=== PATIENT | female | born 1990 | race Caucasian/White ===

== ENCOUNTER 2017-09-26 10:44 | Emergency (ER) | payer OTHER ==
[~2017-09-26] VITALS: Ht 154.9 cm; Wt 78.9 kg
[~2017-09-26 10:44] MED LIST: ALBU-136 IH; PREN-385 PO
[2017-09-26 11:04] VITALS: BP 131/76
--- NOTE | 2017-09-26 11:19 | NUR ---
27 F BIB WITH C/O 10/10 FOREHEAD HEADACHE X 3 DAYS WITH DIZZINESS, BLURRY VISION, PHOTOPHOBIA, AND N/V .HX-ASTHMA.SKIN IS PINK/WARM/DRY; AAOX4 WITH EVEN AND STEADY GAIT; LUNGS CLEAR BL; PT DENIES ANY FEVER, CP, SOB, OR COUGH AT THIS TIME; PATIENT STATES PAIN OF 0/10 AT THIS TIME; PATIENT POSITIONED FOR COMFORT; HOB ELEVATED; BEDRAILS UP X2; BED DOWN. ER MD MADE AWARE OF PT STATUS.
[2017-09-26] MEDS ORDERED: NACL 0.9% 1,000 ML IV ONE (11:40)
[2017-09-26] MEDS ORDERED: diphenhydrAMINE 50 MG/ML VIAL IVP ONE (11:40)
[2017-09-26] MEDS ORDERED: METOCLOPRAMIDE 10 MG/2 ML INJ VIAL IVP ONE (11:40)
[2017-09-26] MEDS ORDERED: KETOROLAC 30 MG/ML VIAL IVP ONE (12:25)
[2017-09-26 13:00] VITALS: BP 128/77
--- NOTE | 2017-09-26 13:00 | NUR ---
Patient discharged with v/s stable. Written and verbal after care instructions given and explained. Patient alert, oriented and verbalized understanding of instructions. Ambulatory with steady gait. All questions addressed prior to discharge. ID band removed. Patient advised to follow up with PMD. Rx of MOTRIN AND ZOFRAN given. Patient educated on indication of medication including possible reaction and side effects. Opportunity to ask questions provided and answered.
== END 2017-09-26 13:00 | disposition home or self-care (01) ==
LOC: MED 10:44
DX: R51 Headache (principal); R11.2 Nausea with vomiting, unspecified; M54.2 Cervicalgia; J45.909 Unspecified asthma, uncomplicated; Z79.899 Other long term (current) drug therapy
CPT/HCPCS: 81002; 81025; 96361; 96374; 96375; 99284; J1200; J1885; J2765; J7030

== ENCOUNTER 2019-07-31 21:21 | Emergency (ER) | payer OTHER ==
[~2019-07-31] VITALS: Ht 154.9 cm; Wt 86.6 kg
[2019-07-31 21:32] VITALS: BP 139/93
[2019-07-31] MEDS: KETOROLAC 30 MG/ML VIAL IM ONE (23:08)
[2019-07-31 23:13] LABS: BASOPHILS % (AUTO) 0.5 % (0.0-2.0); EOSINOPHILS # (AUTO) 0.1 K/uL (0-0.4); EOSINOPHILS % (AUTO) 1.2 % (0.0-4.0); HEMATOCRIT 37.2 % (36-48); LYMPHOCYTES # (AUTO) 3.7 K/uL (2.5-16.5); LYMPHOCYTES % (AUTO) 37.1 % (20.5-51.1); MEAN CORPUSCULAR HEMOGLOBIN 25 pg (27-31); MEAN CORPUSCULAR HGB CONC 32 g/dL (33-37); MEAN CORPUSCULAR VOLUME 76.9 fL (80-94); MONOCYTES # (AUTO) 0.7 K/uL (0.8-1.0); MONOCYTES % (AUTO) 6.7 % (1.7-9.3); NEUTROPHILS # (AUTO) 5.4 K/uL (1.8-7.7); NEUTROPHILS % (AUTO) 54.5 % (42.2-75.2); PLATELET COUNT (AUTO) 252 K/uL (140-450); RED BLOOD CELL COUNT(AUTO) 4.84 MIL/uL (4.20-5.40); RED CELL DISTRIBUTION WIDTH 14.3 % (11.6-13.7); WHITE BLOOD COUNT (AUTO) 9.9 K/uL (4.8-10.8)
[2019-07-31 23:28] LABS: APPEARANCE,URINE CLEAR (CLEAR); BILIRUBIN,URINE NEGATIVE (NEGATIVE); BLOOD, URINE 1+ (NEGATIVE); COLOR,URINE YELLOW (YELLOW); LEUKOCYTE ESTERASE ,URINE NEGATIVE (NEGATIVE); NITRITE, URINE NEGATIVE (NEGATIVE); UGLUCOSE NEGATIVE (NEGATIVE)
[2019-07-31 23:29] LABS: ALBUMIN 3.6 g/dL (3.4-5.0); ANION GAP 12.4 (8-16); CREATININE 0.7 mg/dL (0.6-1.3); POTASSIUM 3.4 mmol/L (3.5-5.1); TOTAL BILIRUBIN 0.6 mg/dL (0.0-1.0)
[2019-07-31 23:38] LABS: RBC,URINE 0-5 /HPF (0-5); WBC,URINE 0-5 /HPF (0-5)
[2019-08-01] MEDS: MORPHINE SULFATE 4 MG/ML SYR IM ONE (01:14)
[2019-08-01] MEDS: DICYCLOMINE HCL LIQUID 20 MG, ALUMINUM HYD/MAG/SIMETHICONE 30 ML, LIDOCAINE VISCOUS 2% ... PO ONE ×3 (01:15)
[2019-08-01 02:05] VITALS: BP 120/83
== END 2019-08-01 02:05 | disposition home or self-care (01) ==
LOC: MED 21:21
DX: R10.11 Right upper quadrant pain (principal); J45.909 Unspecified asthma, uncomplicated; F41.9 Anxiety disorder, unspecified; Z90.49 Acquired absence of other specified parts of digestive tract; Z79.899 Other long term (current) drug therapy
CPT/HCPCS: 36415; 71045; 80053; 81001; 81025; 83690; 85025; 96372; 99284; J1885; J2270

== ENCOUNTER 2019-09-03 19:20 | Emergency (ER) | payer OTHER ==
[~2019-09-03] VITALS: Ht 162.6 cm; Wt 91.6 kg
--- NOTE | 2019-09-03 19:41 | NUR ---
PT AMBULATED TO BED 08.
[2019-09-03 19:47] VITALS: BP 136/81
--- NOTE | 2019-09-03 20:14 | NUR ---
29 Y/O F PRESENTS TO ER C/O RUQ PAIN X1 MONTH. PAIN LEVEL 10/10 SHARP, COMES AND GOES. PT SEEN PCP X 2 WEEKS AGO AND SCHEDULED AN ULTRASOUND THIS MONDAY, BUT PT "CAN'T TAKE THE PAIN" PT HAD X3 VOMIT EPISODES. DENIES NAUSEA AT THIS TIME. DENIES FEVER/CHILLS OR DIARRHEA. NKA. NO MED HX. SURGICAL HX: GALLBLADDER REMOVAL 2009. SAFETY MEASURES IN PLACE. WAITING FOR ERMD TO EVALUATE PT.
--- NOTE | 2019-09-03 20:29 | NUR ---
DR. BUTT AT BEDSIDE EVALUATING PT
[2019-09-03] MEDS ORDERED: KETOROLAC 30 MG/ML VIAL IM ONE (20:30)
[2019-09-03] MEDS ORDERED: HYDROcodone/APAP 5/325 MG 1 TAB TAB PO ONE (20:30)
--- NOTE | 2019-09-03 20:45 | NUR ---
LAB AT BEDSIDE
[2019-09-03 20:53] LABS: BASOPHILS # (AUTO) 0.1 K/uL (0.00-0.22); BASOPHILS % (AUTO) 0.6 % (0.0-2.0); EOSINOPHILS # (AUTO) 0.1 K/uL (0-0.4); EOSINOPHILS % (AUTO) 0.9 % (0.0-4.0); HEMATOCRIT 35.6 % (36-48); HEMOGLOBIN 11.4 g/dL (12.0-16.0); LYMPHOCYTES # (AUTO) 3.5 K/uL (2.5-16.5); LYMPHOCYTES % (AUTO) 29.2 % (20.5-51.1); MEAN CORPUSCULAR HEMOGLOBIN 25 pg (27-31); MEAN CORPUSCULAR HGB CONC 32 g/dL (33-37); MEAN CORPUSCULAR VOLUME 77.8 fL (80-94); MONOCYTES # (AUTO) 0.7 K/uL (0.8-1.0); NEUTROPHILS # (AUTO) 7.6 K/uL (1.8-7.7); NEUTROPHILS % (AUTO) 63.3 % (42.2-75.2); PLATELET COUNT (AUTO) 278 K/uL (140-450); RED BLOOD CELL COUNT(AUTO) 4.57 MIL/uL (4.20-5.40); RED CELL DISTRIBUTION WIDTH 14.5 % (11.6-13.7); WHITE BLOOD COUNT (AUTO) 11.9 K/uL (4.8-10.8)
[2019-09-03 21:05] LABS: CARBON DIOXIDE 28.8 mmol/L (21-32); CREATININE 0.6 mg/dL (0.6-1.3); POTASSIUM 3.8 mmol/L (3.5-5.1)
[2019-09-03 21:11] LABS: ALBUMIN 3.7 g/dL (3.4-5.0); TOTAL BILIRUBIN 0.3 mg/dL (0.0-1.0)
--- NOTE | 2019-09-03 22:40 | NUR ---
PT C/O NO PAIN RELIEF TO RUQ. PAIN LEVEL 8/10. ERMD MADE AWARE.
[2019-09-03] MEDS ORDERED: fentaNYL 0.05 MG/ML VIAL NS ONE (22:45)
[2019-09-03 23:32] VITALS: BP 122/73
--- NOTE | 2019-09-03 23:32 | NUR ---
Patient discharged with v/s stable. Written and verbal after care instructions given and explained. Pt encouraged to eat a clear liquid diet and follow up with PCP. Patient alert, oriented and verbalized understanding of instructions. Ambulatory with steady gait. All questions addressed prior to discharge. ID band removed. Patient advised to follow up with PMD. Rx of nORCO 5MG AND MYLANTA 200MG was given. Patient educated on indication of medication including possible reaction and side effects. Opportunity to ask questions provided and answered.
== END 2019-09-03 23:32 | disposition home or self-care (01) ==
LOC: MED 19:20
DX: R10.11 Right upper quadrant pain (principal); R12 Heartburn; J45.909 Unspecified asthma, uncomplicated; Z90.49 Acquired absence of other specified parts of digestive tract; Z79.899 Other long term (current) drug therapy
CPT/HCPCS: 36415; 80053; 81025; 83690; 85025; 96372; 99283; J1885; J3010

== ENCOUNTER 2020-04-26 22:47 | Emergency (ER) | payer OTHER ==
[~2020-04-26] VITALS: Ht 154.9 cm; Wt 77.6 kg
[2020-04-26 23:53] VITALS: BP 120/85
--- NOTE | 2020-04-27 00:01 | NUR ---
PT TAKEN TO BED 7
[2020-04-27] MEDS ORDERED: ONDANSETRON 4 MG ODT PO ONE (00:05)
--- NOTE | 2020-04-27 00:10 | NUR ---
30 Y/O FEMALE PRESENTS TO ER WITH C/O VOMITING X 2 DAYS. 8/10 EPIGASTRIC PAIN. PT IS 6 WEEKS . PT STATES SHE HASN'T BEEN ABLE TO KEEP ANY FLUIDS, OR FOOD DOWN X 2 DAYS. LOW GRADE FEVER 99.0, DENIES COUGH, SOB, DIARRHEA. R/R EQUAL, AND UNLABORED, VSS. SIDE RAIL X1, BED IN LOW POSITION, WILL CONTINUE TO MONITOR. NKDA PMH: DEPRESSION, ANXIETY
--- NOTE | 2020-04-27 00:14 | NUR ---
PT MEDICATED WITH PO ZOFRAN
[2020-04-27] MEDS ORDERED: ONDANSETRON 4 MG/2 ML VIAL IVP ONE (00:30)
[2020-04-27] MEDS ORDERED: NACL 0.9% 1,000 ML IV ONE (00:30)
[2020-04-27] MEDS ORDERED: diphenhydrAMINE 50 MG/ML VIAL IVP ONE (01:15)
[2020-04-27] MEDS ORDERED: METOCLOPRAMIDE 10 MG/2 ML INJ VIAL IVP ONE (01:15)
--- NOTE | 2020-04-27 01:28 | NUR ---
PT MEDICATED WITH BENADRYL AND REGALN IVP. TOLERATED WELL. NADR
--- NOTE | 2020-04-27 02:00 | NUR ---
PT GIVEN FLUID FOR PO CHALLENGE
[2020-04-27 02:10] VITALS: BP 95/47
--- NOTE | 2020-04-27 02:10 | NUR ---
Patient discharged with v/s stable. Written and verbal after care instructions about morning sickness given and explained. Patient alert, oriented and verbalized understanding of instructions. Ambulatory with steady gait. All questions addressed prior to discharge. ID band removed. Patient advised to follow up with PMD. Rx of Zofran given. Patient educated on indication of medication including possible reaction and side effects. Opportunity to ask questions provided and answered. Pt not throw up after PO challenge, states she feels good to go home.
== END 2020-04-27 02:10 | disposition home or self-care (01) ==
LOC: MED 22:47
DX: O21.8 Other vomiting complicating pregnancy (principal); J45.909 Unspecified asthma, uncomplicated; Z3A.01 Less than 8 weeks gestation of pregnancy; Z90.49 Acquired absence of other specified parts of digestive tract; Z79.899 Other long term (current) drug therapy
CPT/HCPCS: 81025; 96361; 96374; 96375; 99284; J1200; J2405; J2765; J7030; Q0162; 81002

== ENCOUNTER 2020-06-16 14:15 | Emergency (ER) | payer OTHER ==
[~2020-06-16] VITALS: Ht 152.4 cm; Wt 75.7 kg
[2020-06-16 14:20] VITALS: BP 131/82
--- NOTE | 2020-06-16 14:40 | NUR ---
30 y/o female from home c/o headache x 3 days. C/O photophobia and dizziness. +N/V secondary to headache. States approx 14 wks . Denies abd pain/cramping. Took tylenol around 0800 today with no pain relief. RR even and unlabored. VSS. LMP in February. medhx: anxiety
--- NOTE | 2020-06-16 14:42 | NUR ---
DR. AGARWAL EVALUATING PT AT BEDSIDE
[2020-06-16] MEDS ORDERED: METOCLOPRAMIDE 10 MG/2 ML INJ VIAL IVP ONE (14:50)
[2020-06-16] MEDS ORDERED: NACL 0.9% 1,000 ML IV ONE ×2 (14:50→17:15)
[2020-06-16] MEDS ORDERED: diphenhydrAMINE 50 MG/ML VIAL IVP ONE (14:50)
--- NOTE | 2020-06-16 15:00 | NUR ---
20g IV placed to pts rt ac. Fluids started and medication given to pt.
--- NOTE | 2020-06-16 16:00 | NUR ---
Resting in bed on cellphone, slight decrease in headache at this time. Will continue to monitor
--- NOTE | 2020-06-16 17:13 | NUR ---
Pt states 10/10 aching to head at this time. Asking for medication for pain. Dr Hayden made aware
[2020-06-16] MEDS ORDERED: MORPHINE SULFATE 4 MG/ML SYR IVP ONE (17:15)
--- NOTE | 2020-06-16 17:37 | NUR ---
Pt states decrease in pain at this time. 12/23 tolerable pain
--- NOTE | 2020-06-16 17:58 | NUR ---
COVID SWABBED DROPPED OFF AT LAB
--- NOTE | 2020-06-16 18:37 | NUR ---
IV discontinued 2x2 gauze placed to IV site. Bleeding controlled at this time
[2020-06-16 19:05] VITALS: BP 128/77
--- NOTE | 2020-06-16 19:05 | NUR ---
Patient discharged with v/s stable. Written and verbal after care instructions given and explained. Patient verbalized understanding. Ambulatory with steady gait. All questions addressed prior to discharge. Advised to follow up with PMD.
== END 2020-06-16 19:05 | disposition home or self-care (01) ==
LOC: MED 14:15
DX: R51 Headache (principal); R42 Dizziness and giddiness; H53.149 Visual discomfort, unspecified; R11.2 Nausea with vomiting, unspecified; J45.909 Unspecified asthma, uncomplicated; G43.909 Migraine, unspecified, not intractable, without status migrainosus; F41.9 Anxiety disorder, unspecified; Z79.899 Other long term (current) drug therapy; Z90.49 Acquired absence of other specified parts of digestive tract
CPT/HCPCS: 81025; 96374; 96375; 99284; J1200; J2270; J2765; J7030; U0003

== ENCOUNTER 2020-07-20 14:07 | Emergency (ER) | payer OTHER ==
[~2020-07-20] VITALS: Ht 157.5 cm; Wt 78.5 kg
[2020-07-20 14:19] VITALS: BP 131/81
--- NOTE | 2020-07-20 15:01 | NUR ---
30 YO FEMALE CO ABD PAIN. A0 JUAN C 12/15/20. DATE OF LAST PERIOD UNK. APPROX 18-19 WKS PREG. C/O DYSURIA AND PELVIC PAIN X2 DAYS. DENIES FEVER, N/V. NO VAGINAL BLEEDING OR DISCHARGE NOTED. HX: ANXIETY, DM RX: CELEXA, METFORMIN
[2020-07-20 15:09] VITALS: BP 128/79
--- NOTE | 2020-07-20 15:10 | NUR ---
Patient discharged with v/s stable. Written and verbal after care instructions given and explained. Patient alert, oriented and verbalized understanding of instructions. Ambulatory with steady gait. All questions addressed prior to discharge. ID band removed. Patient advised to follow up with PMD. Rx of ACETHAMINIOPHEN AND CEPHALEXIN given. Patient educated on indication of medication including possible reaction and side effects. Opportunity to ask questions provided and answered.
== END 2020-07-20 15:10 | disposition home or self-care (01) ==
LOC: MED 14:07
DX: O23.42 Unspecified infection of urinary tract in pregnancy, second trimester (principal); J45.909 Unspecified asthma, uncomplicated; Z90.49 Acquired absence of other specified parts of digestive tract; Z3A.18 18 weeks gestation of pregnancy; Z79.899 Other long term (current) drug therapy
CPT/HCPCS: 81002; 87086; 99283

== ENCOUNTER 2021-04-16 17:12 | Emergency (ER) | payer OTHER ==
[~2021-04-16] VITALS: Ht 154.9 cm; Wt 83.9 kg
[~2021-04-16 17:12] MED LIST changes: +ALBU-118 IH; -ALBU-136 IH
[2021-04-16 17:18] VITALS: BP 117/77
[2021-04-16 20:44] VITALS: BP 117/77
--- NOTE | 2021-04-16 20:44 | NUR ---
PATIENT ELOPED FROM FACILITY. DISCHARGE INSTRUCTIONS NOT GIVEN TO PATIENT. DR. HOPPER NOTIFIED.
== END 2021-04-16 20:44 | disposition left against medical advice (07) ==
LOC: MED 17:12
DX: R00.2 Palpitations (principal); R20.0 Anesthesia of skin; R07.9 Chest pain, unspecified; R42 Dizziness and giddiness
CPT/HCPCS: 81002; 81025; 93005; 99283

== ENCOUNTER 2021-05-04 09:35 | Emergency (ER) | payer OTHER ==
[~2021-05-04] VITALS: Ht 152.4 cm; Wt 85.7 kg
[2021-05-04 09:41] VITALS: BP 144/83
[2021-05-04] MEDS ORDERED: ACET-8386 PO ×2 (10:13→10:47)
[2021-05-04] MEDS ORDERED: DOXY100C9 PO (10:13)
[2021-05-04] MEDS ORDERED: IBUP-2213 PO (10:13)
[2021-05-04] MEDS: ONDANSETRON 4 MG ODT PO ONE (10:15)
[2021-05-04] MEDS ORDERED: AMOX1TAB8 PO (10:47)
[2021-05-04] MEDS ORDERED: ONDA-24 PO (10:47)
[2021-05-04 11:04] VITALS: BP 144/83
== END 2021-05-04 10:58 | disposition home or self-care (01) ==
LOC: MED 09:35
DX: L03.211 Cellulitis of face (principal); R11.0 Nausea; H02.845 Edema of left lower eyelid; H02.842 Edema of right lower eyelid; J45.909 Unspecified asthma, uncomplicated
CPT/HCPCS: 99283; Q0162

== ENCOUNTER 2021-07-20 14:40 | Emergency (ER) | payer OTHER ==
[~2021-07-20] VITALS: Ht 154.9 cm; Wt 86.2 kg
[~2021-07-20 14:40] MED LIST changes: +ACET-8386 PO; +AMOX1TAB8 PO; +ONDA-24 PO
[2021-07-20 15:05] VITALS: BP 139/90
--- NOTE | 2021-07-20 15:15 | NUR ---
[facility]: RIGHT EYE 20/50, LEFT EYE 20/50, BOTH EYES 20/50
--- NOTE | 2021-07-20 15:17 | NUR ---
CHARLES. HANDED ON URINE CUP.
[2021-07-20] MEDS ORDERED: diphenhydrAMINE 50 MG/ML VIAL IM ONE (17:00)
[2021-07-20] MEDS ORDERED: METOCLOPRAMIDE 10 MG/2 ML INJ VIAL IM ONE (17:00)
[2021-07-20] MEDS: PROCHLORPERAZINE 10 MG/2 ML VIAL IM ONE ×2 (17:27→17:29)
[2021-07-20] MEDS ORDERED: DEXAMETHASONE 4 MG/ML VIAL PO ONE (17:55)
[2021-07-20] MEDS ORDERED: KETOROLAC 30 MG/ML VIAL IM ONE (17:55)
[2021-07-20] MEDS ORDERED: DEXAMETHASONE 4 MG TAB PO ONE (18:20)
[2021-07-20] MEDS ORDERED: CRUSHER, PILL MC ONE (18:23)
--- NOTE | 2021-07-20 19:00 | NUR ---
NO NURSING INTERVENTIONS HAVE BEEN GIVEN
[2021-07-20 19:02] VITALS: BP 141/90
--- NOTE | 2021-07-20 19:03 | NUR ---
Patient discharged with v/s stable. Written and verbal after care instructions ABOUT HEADACHE given and explained. Patient verbalized understanding. Ambulatory with steady gait. All questions addressed prior to discharge. Advised to follow up with PMD.
== END 2021-07-20 19:02 | disposition home or self-care (01) ==
LOC: MED 14:40
DX: R51.9 Headache, unspecified (principal); R42 Dizziness and giddiness; H53.9 Unspecified visual disturbance; J45.909 Unspecified asthma, uncomplicated; G43.909 Migraine, unspecified, not intractable, without status migrainosus
CPT/HCPCS: 96372; 99284; J0780; J1100; J1200; J1885; J2765

== ENCOUNTER 2021-12-12 22:29 | Emergency (ER) | payer OTHER ==
[~2021-12-12] VITALS: Ht 154.9 cm; Wt 87.1 kg
[~2021-12-12 22:29] MED LIST changes: +AMOX-1230 PO; -AMOX1TAB8 PO; +ONDA-188 PO; -ONDA-24 PO
[2021-12-13] VITALS: BP 106/73
--- NOTE | 2021-12-13 | NUR ---
EKG DONE. TO LOBBY FOLLOWING TRIAGE
[2021-12-13] MEDS ORDERED: NAPR-54 PO (00:20)
--- NOTE | 2021-12-13 00:20 | NUR ---
DISCHARGED PER DR BONILLA
== END 2021-12-13 00:25 | disposition home or self-care (01) ==
LOC: MED 22:29
DX: R07.89 Other chest pain (principal); F41.9 Anxiety disorder, unspecified; J45.909 Unspecified asthma, uncomplicated; Z79.1 Long term (current) use of non-steroidal anti-inflammatories (NSAID); Z79.899 Other long term (current) drug therapy; Z79.891 Long term (current) use of opiate analgesic; Z79.2 Long term (current) use of antibiotics
CPT/HCPCS: 93005; 99283

== ENCOUNTER 2022-01-07 17:01 | Emergency (ER) | payer OTHER ==
[~2022-01-07] VITALS: Ht 154.9 cm; Wt 88.5 kg
[~2022-01-07 17:01] MED LIST changes: +NAPR-54 PO
[2022-01-07 17:07] VITALS: BP 137/71
--- NOTE | 2022-01-07 17:32 | NUR ---
NASIR WALKED OVER TO LAB
[2022-01-07] MEDS ORDERED: PRED20TA5 PO (17:36)
[2022-01-07] MEDS ORDERED: AZIT250T4 PO (17:36)
[2022-01-07] MEDS ORDERED: PROM118S5 PO (17:36)
--- NOTE | 2022-01-07 18:22 | NUR ---
31 y/o female, c/o body aches, jay, productive cough, chest tightness for 1 week. pt states she had covid back in october 2021. pmh: asthma med: delsym (cough medication), albuterol nka
[2022-01-07 18:50] VITALS: BP 137/71
--- NOTE | 2022-01-07 18:51 | NUR ---
Patient discharged with v/s stable. Written and verbal after care instructions given and explained. Patient alert, oriented and verbalized understanding of instructions. Ambulatory with steady gait. All questions addressed prior to discharge. ID band removed. Patient advised to follow up with PMD. Rx of AZITHROMYCIN, PREDNISONE,PROMETHAZINE WAS given. Patient educated on indication of medication including possible reaction and side effects. Opportunity to ask questions provided and answered.
== END 2022-01-07 18:50 | disposition home or self-care (01) ==
LOC: MED 17:01
DX: R05.9 Cough, unspecified (principal); R07.89 Other chest pain; Z20.822 Contact with and (suspected) exposure to COVID-19; J45.909 Unspecified asthma, uncomplicated; Z79.899 Other long term (current) drug therapy; Z79.2 Long term (current) use of antibiotics; Z79.891 Long term (current) use of opiate analgesic; Z79.1 Long term (current) use of non-steroidal anti-inflammatories (NSAID)
CPT/HCPCS: 71045; 87426; 99284; Q0092

== ENCOUNTER 2022-01-29 19:20 | Emergency (ER) | payer OTHER, SELFPAY ==
[~2022-01-29] VITALS: Ht 162.6 cm; Wt 87.1 kg
[~2022-01-29 19:20] MED LIST changes: +ACET-1182 PO; -ACET-8386 PO; -ALBU-118 IH; -AMOX-1230 PO; -NAPR-54 PO; -ONDA-188 PO; -PREN-385 PO
[2022-01-29 19:24] VITALS: BP 145/92
--- NOTE | 2022-01-29 19:28 | NUR ---
Patient BIB by family from home. S/P post op appendectomy and bleeding surgical site after discharged from hospital today ~ 1830 PM . A/O,X4, bleeding from umbilical area , abdominal pain.
--- NOTE | 2022-01-29 19:45 | NUR ---
Dr. Danielle at bedside to exam patient.
--- NOTE | 2022-01-29 19:56 | NUR ---
Patient's family at bedside.
[2022-01-29] MEDS: DOCUSATE SODIUM 100 MG GELCAP PO ONE (20:05)
[2022-01-29] MEDS: HYDROcodone/APAP 7.5/325 MG 1 TAB PO ONE (20:06)
--- NOTE | 2022-01-29 20:17 | NUR ---
Patient returned from radiology dept via wheelchair.
[2022-01-29] MEDS ORDERED: DOCU-299 PO (22:06)
[2022-01-29] MEDS ORDERED: IBUP-2213 PO (22:06)
[2022-01-29] MEDS ORDERED: HYDR-5080 PO (22:06)
--- NOTE | 2022-01-29 22:09 | NUR ---
Cleaned surgical area with NSS.
--- NOTE | 2022-01-29 22:19 | NUR ---
Dr. Danielle applied Dermabond surgical area, patient tolerated well.
[2022-01-29 22:36] VITALS: BP 145/92
--- NOTE | 2022-01-29 22:36 | NUR ---
Patient discharged with v/s stable. Written and verbal after care instructions given and explained. Patient alert, oriented and verbalized understanding of instructions. Ambulatory with steady gait. All questions addressed prior to discharge. ID band removed. Patient advised to follow up with PMD. Rx of Ibuprofen, [place] and Colace given. Patient educated on indication of medication including possible reaction and side effects. Opportunity to ask questions provided and answered.
== END 2022-01-29 22:36 | disposition home or self-care (01) ==
LOC: MED 19:20
DX: K91.840 Postprocedural hemorrhage of a digestive system organ or structure following a digestive system procedure (principal); R42 Dizziness and giddiness; J45.909 Unspecified asthma, uncomplicated; I10 Essential (primary) hypertension; Z79.899 Other long term (current) drug therapy; Z88.1 Allergy status to other antibiotic agents; Y83.6 Removal of other organ (partial) (total) as the cause of abnormal reaction of the patient, or of later complication, without mention of misadventure at the time of the procedure
CPT/HCPCS: 74021; 81025; 99283

== ENCOUNTER 2022-02-04 12:26 | Emergency (ER) | payer OTHER, SELFPAY ==
[~2022-02-04] VITALS: Ht 162.6 cm; Wt 86.6 kg
[~2022-02-04 12:26] MED LIST changes: +DOCU-299 PO; +HYDR-5080 PO; +IBUP-2213 PO
[2022-02-04 12:29] VITALS: BP 125/84
--- NOTE | 2022-02-04 12:36 | NUR ---
PT AMBULATED TO ER BED 6 WITH STEADY GAIT
--- NOTE | 2022-02-04 12:59 | NUR ---
DR BUTT AT BEDSIDE EVALUATING PT
[2022-02-04] MEDS ORDERED: ONDANSETRON 4 MG/2 ML VIAL IVP ONE ×2 (13:10)
[2022-02-04] MEDS ORDERED: KETOROLAC 30 MG/ML VIAL IVP ONE (13:10)
--- NOTE | 2022-02-04 13:20 | NUR ---
PATIENT TAKEN TO CT VIA WHEELCHAIR.
--- NOTE | 2022-02-04 13:23 | NUR ---
PATIENT ESCORTED BACK TO ROOM VIA WHEELCHAIR.
[2022-02-04 13:40] LABS: APPEARANCE,URINE HAZY (CLEAR); BILIRUBIN,URINE NEGATIVE (NEGATIVE); BLOOD, URINE 3+ (NEGATIVE); COLOR,URINE YELLOW (YELLOW); LEUKOCYTE ESTERASE ,URINE NEGATIVE (NEGATIVE); NITRITE, URINE NEGATIVE (NEGATIVE); UGLUCOSE NEGATIVE (NEGATIVE)
[2022-02-04 13:49] LABS: BASOPHILS # (AUTO) 0.1 K/uL (0.00-0.22); BASOPHILS % (AUTO) 0.8 % (0.0-2.0); EOSINOPHILS # (AUTO) 0.4 K/uL (0-0.4); EOSINOPHILS % (AUTO) 3.9 % (0.0-4.0); HEMATOCRIT 37.4 % (36-48); HEMOGLOBIN 12.3 g/dL (12.0-16.0); LYMPHOCYTES # (AUTO) 3.1 K/uL (2.5-16.5); LYMPHOCYTES % (AUTO) 29.9 % (20.5-51.1); MEAN CORPUSCULAR HEMOGLOBIN 25 pg (27-31); MEAN CORPUSCULAR HGB CONC 33 g/dL (33-37); MEAN CORPUSCULAR VOLUME 77.2 fL (80-94); MONOCYTES # (AUTO) 0.6 K/uL (0.8-1.0); MONOCYTES % (AUTO) 5.7 % (1.7-9.3); NEUTROPHILS # (AUTO) 6.1 K/uL (1.8-7.7); NEUTROPHILS % (AUTO) 59.7 % (42.2-75.2); PLATELET COUNT (AUTO) 292 K/uL (140-450); RED BLOOD CELL COUNT(AUTO) 4.85 MIL/uL (4.20-5.40); RED CELL DISTRIBUTION WIDTH 14.6 % (11.6-13.7); WHITE BLOOD COUNT (AUTO) 10.3 K/uL (4.8-10.8)
[2022-02-04] MEDS ORDERED: NACL 0.9% 1,000 ML IV ONE ×2 (13:50)
[2022-02-04] MEDS ORDERED: diazePAM 5 MG TAB PO ONE (13:50)
[2022-02-04 13:57] LABS: ALBUMIN 3.7 g/dL (3.4-5.0); ANION GAP 15.4 (8-16); CARBON DIOXIDE 27.3 mmol/L (21-32); CREATININE 0.5 mg/dL (0.6-1.3); POTASSIUM 3.7 mmol/L (3.5-5.1); TOTAL BILIRUBIN 0.8 mg/dL (0.0-1.0)
[2022-02-04] MEDS ORDERED: NALO4SPR NS (14:00)
[2022-02-04] MEDS ORDERED: DIAZ5TAB8 PO (14:00)
[2022-02-04 14:05] LABS: CALCIUM OXALATE CRYSTALS,UR None Seen /HPF (None Seen); OTHER CRYSTALS,URINE None Seen /HPF (None Seen); TRICHOMONAS,URINE None Seen /HPF (None Seen); TRIPLE PHOSPHATE CRYSTAL,UR None Seen /HPF (None Seen); URIC ACID CRYSTALS,URINE None Seen /HPF (None Seen); URINE AMORPHOUS URATE None Seen /HPF (None Seen); YEAST,URINE None Seen /HPF (None Seen)
[2022-02-04 14:06] LABS: COARSE GRANULAR CASTS,URINE None Seen /LPF (None Seen); FINE GRANULAR CASTS,URINE None Seen /LPF (None Seen); HYALINE CASTS, URINE None Seen /LPF (None Seen); OTHER CASTS, URINE None Seen /LPF (None Seen); RED BLOOD CELL CASTS,URINE None Seen /LPF (None Seen); WAXY CASTS,URINE None Seen /LPF (None Seen)
--- NOTE | 2022-02-04 15:20 | NUR ---
ATTEMPTED TO ROAD TEST PATIENT, PATIENT REPORTS DIZZINESS AND FATIGUE. WILL CONTINUE TO MONITOR.
--- NOTE | 2022-02-04 16:08 | NUR ---
ATTEMPTED ROAD TEST WITH PATIENT, PATIENT TOLERATED PROCEDURE WELL. STEADY GAIT NOTED. PATIENT STATES SHE IS FEELING BETTER AND READY TO D/C.
[2022-02-04 16:10] VITALS: BP 125/74
--- NOTE | 2022-02-04 16:10 | NUR ---
Patient discharged with v/s stable. Written and verbal after care instructions ABOUT NAUSEA AND VOMITING/ CERVICAL STRAIN AND SPRAIN REHAB given and explained. Patient alert, oriented and verbalized understanding of instructions. Ambulatory with steady gait. All questions addressed prior to discharge. ID band removed. Patient advised to follow up with PMD. Rx of VALIUM AND NARCAN given.
--- NOTE | 2022-02-04 16:11 | NUR ---
The patient's care was reviewed and supervised by Deepa Guevara RN.
== END 2022-02-04 16:10 | disposition home or self-care (01) ==
LOC: MED 12:26
DX: R11.2 Nausea with vomiting, unspecified (principal); M54.2 Cervicalgia; J45.909 Unspecified asthma, uncomplicated; Z79.899 Other long term (current) drug therapy; Z88.1 Allergy status to other antibiotic agents; Z90.49 Acquired absence of other specified parts of digestive tract
CPT/HCPCS: 36415; 70450; 80053; 81001; 81025; 85025; 87086; 96361; 96374; 96375; 99284; J1885; J2405; J7030

== ENCOUNTER 2022-03-21 20:28 | Emergency (ER) | payer OTHER ==
[~2022-03-21] VITALS: Ht 154.9 cm; Wt 87.1 kg
[~2022-03-21 20:28] MED LIST changes: +DIAZ5TAB8 PO; +NALO4SPR NS
[2022-03-21 20:36] VITALS: BP 129/84
--- NOTE | 2022-03-21 21:45 | NUR ---
PT TAKEN TO BED 4
--- NOTE | 2022-03-21 21:58 | NUR ---
31 YO/F PRESENTS TO ED W C/O 08/22 MIGARINE HEADACHE THROBBING CONSTANT X3 DAYS, W EPISODES OF BLURRY VISION AND DIZZYNESS, + NASUEA. PT DENIES ANY FEVERS,CHILLS, V/D. TOOK EXCEDRIN 1100 AND TYLENOL 0200 W/O RELIEF. PT LAYING IN BED W HOB ELEVATED, ROOM LIGHTS OFF, BED LOCKED IN LOWEST POSITION. BREATHING EVEN AND UNLABORED. WILL CONTINUE TO MONITOR. PMH: MIGRAINE HEADACHES, ASTHMA ALLERGIES: ZOSYN
--- NOTE | 2022-03-21 22:03 | NUR ---
PT AMBULATORY TO BATHROOM W STEADY GAIT.
--- NOTE | 2022-03-21 22:16 | NUR ---
Dr. Reynoso examining patient.
[2022-03-21] MEDS ORDERED: KETOROLAC 60 MG/2 ML VIAL IM ONE (22:50)
[2022-03-21] MEDS ORDERED: PROCHLORPERAZINE 10 MG/2 ML VIAL IM ONE (22:50)
[2022-03-21] MEDS ORDERED: diphenhydrAMINE 50 MG/ML VIAL IM ONE (22:50)
--- NOTE | 2022-03-21 23:51 | NUR ---
PT REPORTS FEELING BETTER AND READY TO GO HOME, PAIN 05/22, DENIES ONGOING DIZZYNESS OR NAUSEA. Addendum: 03/21/22 at 2357 by MAMI Amendment undone in EDM - 03/21/22 at 2357 by MAMI shellie aware of pt status. Addendum: 03/21/22 at 2357 by MAMI ermd aware of pt status.
[2022-03-21 23:53] VITALS: BP 117/77
== END 2022-03-21 23:53 | disposition home or self-care (01) ==
LOC: MED 20:28
DX: G43.909 Migraine, unspecified, not intractable, without status migrainosus (principal); J45.909 Unspecified asthma, uncomplicated; Z79.899 Other long term (current) drug therapy; Z88.1 Allergy status to other antibiotic agents
CPT/HCPCS: 81025; 96372; 99284; J0780; J1200; J1885

== ENCOUNTER 2022-03-26 09:24 | Emergency (ER) | payer OTHER ==
[~2022-03-26] VITALS: Ht 160 cm; Wt 89.1 kg
[2022-03-26 09:33] VITALS: BP 108/91
--- NOTE | 2022-03-26 09:40 | NUR ---
PT AMB TO BED 2.
--- NOTE | 2022-03-26 10:06 | NUR ---
31 y/o female, c/o chest tightness with cough production, pt has productive cough that has not resolved. pt states shes been here previously for same s/s. pt states cough has gotten worse and it now hurts to swallow and talk. denies nausea, vomiting, diarrhea. skin is pink/warm/dry. a&o x4 with even and steady gait. lung crackles/coarse bl, heart rate even and regular. pt states pain is 9/10 at this time. patient positioned for comfort. hob elevated. bed down. ermd made aware of pt. pmh: asthma allergy: zosyn med: jean-paulsin
[2022-03-26] MEDS ORDERED: predniSONE 20 MG TAB PO ONE (10:15)
[2022-03-26] MEDS ORDERED: ALBUTEROL SULFATE/IPRATROPIU 3 ML SOL IH ONE (10:15)
--- NOTE | 2022-03-26 10:23 | NUR ---
[facility] GIVEN ORDERED ENCOURAGED PATIENT FOR INTERMITTENT DEEP BREATHING DURING THERAPY
--- NOTE | 2022-03-26 10:30 | NUR ---
RT BEDSIDE PROVIDING BREATHING TX
--- NOTE | 2022-03-26 12:24 | NUR ---
Patient appears to be resting comfortably in bed. Vital Signs within normal limits. Respirations even and unlabored.
[2022-03-26] MEDS ORDERED: PRED20TA5 PO (13:14)
[2022-03-26] MEDS ORDERED: AZIT250T4 PO (13:14)
[2022-03-26 14:03] VITALS: BP 120/78
--- NOTE | 2022-03-26 14:04 | NUR ---
Patient discharged with v/s stable. Written and verbal after care instructions given and explained. Patient alert, oriented and verbalized understanding of instructions. Ambulatory with steady gait. All questions addressed prior to discharge. ID band removed. Patient advised to follow up with PMD. Rx of azithromycin, prednisone (sent) given. Patient educated on indication of medication including possible reaction and side effects. Opportunity to ask questions provided and answered. copy of lab and imaging given
== END 2022-03-26 14:03 | disposition home or self-care (01) ==
LOC: MED 09:24
DX: J20.9 Acute bronchitis, unspecified (principal); Z20.822 Contact with and (suspected) exposure to COVID-19; J45.901 Unspecified asthma with (acute) exacerbation; I10 Essential (primary) hypertension; Z88.1 Allergy status to other antibiotic agents; Z79.899 Other long term (current) drug therapy
CPT/HCPCS: 71046; 81002; 81025; 87081; 87426; 87804; 94640; 99285; J7512

== ENCOUNTER 2022-05-29 20:48 | Emergency (ER) | payer OTHER ==
[~2022-05-29] VITALS: Ht 154.9 cm; Wt 87.1 kg
[~2022-05-29 20:48] MED LIST changes: +AZIT250T4 PO; +PRED20TA5 PO
[2022-05-29 20:50] VITALS: BP 135/88
--- NOTE | 2022-05-29 20:53 | NUR ---
TO LOBBY A/W BED AMBULATORY
--- NOTE | 2022-05-29 23:06 | NUR ---
PT TAKEN TO BED 1 VIA WC
[2022-05-29] MEDS ORDERED: KETOROLAC 15 MG/ML VIAL IM ONE (23:45)
[2022-05-30] MEDS ORDERED: IBUP-2213 PO (00:06)
[2022-05-30 00:42] VITALS: BP 117/84
--- NOTE | 2022-05-30 00:42 | NUR ---
Patient discharged with v/s stable. Written and verbal after care instructions given and explained. Patient verbalized understanding. Ambulatory with crutches, steady gait. All questions addressed prior to discharge. Advised to follow up with PMD.
== END 2022-05-30 00:42 | disposition home or self-care (01) ==
LOC: MED 20:48
DX: S92.351A Displaced fracture of fifth metatarsal bone, right foot, initial encounter for closed fracture (principal); I10 Essential (primary) hypertension; J45.909 Unspecified asthma, uncomplicated; F41.9 Anxiety disorder, unspecified; X58.XXXA Exposure to other specified factors, initial encounter; Y93.89 Activity, other specified; Y92.89 Other specified places as the place of occurrence of the external cause; Y99.8 Other external cause status
CPT/HCPCS: 73560; 73610; 73620; 96372; 99284; J1885

== ENCOUNTER 2023-03-15 07:49 | Emergency (ER) | payer OTHER ==
[~2023-03-15] VITALS: Ht 154.9 cm; Wt 74.8 kg
[2023-03-15 07:57] VITALS: BP 124/77
[2023-03-15] MEDS ORDERED: KETOROLAC 30 MG/ML VIAL IM ONE (08:20)
[2023-03-15 08:52] LABS: APPEARANCE,URINE CLEAR (CLEAR); BILIRUBIN,URINE NEGATIVE (NEGATIVE); BLOOD, URINE 3+ (NEGATIVE); COLOR,URINE YELLOW (YELLOW); LEUKOCYTE ESTERASE ,URINE NEGATIVE (NEGATIVE); NITRITE, URINE NEGATIVE (NEGATIVE); PH,URINE 8.5 (5.0-9.0); UGLUCOSE NEGATIVE (NEGATIVE)
--- NOTE | 2023-03-15 09:02 | NUR ---
32 YO FEMALE PRESENTS TO THE ED C/O VAGINAL BLEEDING GOING ON FOR 2 MONTHS. PATIENT ALSO C/O PAIN TO LOWER BACK, RADIATING TO LEGS, SINCE 2100 LAST NIGHT.
[2023-03-15 09:16] LABS: BASOPHILS % (AUTO) 0.5 % (0.0-2.0); EOSINOPHILS # (AUTO) 0.1 K/uL (0-0.4); EOSINOPHILS % (AUTO) 1.1 % (0.0-4.0); HEMATOCRIT 37.4 % (36-48); HEMOGLOBIN 12.2 g/dL (12.0-16.0); LYMPHOCYTES # (AUTO) 2.7 K/uL (2.5-16.5); LYMPHOCYTES % (AUTO) 34.3 % (20.5-51.1); MEAN CORPUSCULAR HEMOGLOBIN 26 pg (27-31); MEAN CORPUSCULAR HGB CONC 33 g/dL (33-37); MEAN CORPUSCULAR VOLUME 78.4 fL (80-94); MONOCYTES # (AUTO) 0.5 K/uL (0.8-1.0); MONOCYTES % (AUTO) 6.7 % (1.7-9.3); NEUTROPHILS # (AUTO) 4.5 K/uL (1.8-7.7); NEUTROPHILS % (AUTO) 57.4 % (42.2-75.2); PLATELET COUNT (AUTO) 246 K/uL (140-450); RED BLOOD CELL COUNT(AUTO) 4.77 MIL/uL (4.20-5.40); RED CELL DISTRIBUTION WIDTH 13.6 % (11.6-13.7); WHITE BLOOD COUNT (AUTO) 7.8 K/uL (4.8-10.8)
[2023-03-15 09:54] LABS: ALBUMIN 3.7 g/dL (3.4-5.0); ANION GAP 12.4 (8-16); CARBON DIOXIDE 27.6 mmol/L (21-32); CREATININE 0.6 mg/dL (0.6-1.3); TOTAL BILIRUBIN 0.5 mg/dL (0.0-1.0)
[2023-03-15] MEDS ORDERED: IBUP-2213 PO (10:27)
== END 2023-03-15 10:36 | disposition home or self-care (01) ==
LOC: MED 07:49
DX: N92.0 Excessive and frequent menstruation with regular cycle (principal); N83.201 Unspecified ovarian cyst, right side; J45.909 Unspecified asthma, uncomplicated; E11.9 Type 2 diabetes mellitus without complications; I10 Essential (primary) hypertension; F41.9 Anxiety disorder, unspecified; E78.5 Hyperlipidemia, unspecified; Z90.49 Acquired absence of other specified parts of digestive tract; Z79.1 Long term (current) use of non-steroidal anti-inflammatories (NSAID); Z79.899 Other long term (current) drug therapy; Z79.2 Long term (current) use of antibiotics; Z88.1 Allergy status to other antibiotic agents; Z88.0 Allergy status to penicillin
CPT/HCPCS: 36415; 76856; 80053; 81003; 81025; 85025; 96372; 99285; J1885; Q0092

== ENCOUNTER 2023-04-19 06:05 | Emergency (ER) | payer OTHER ==
[~2023-04-19] VITALS: Ht 154.9 cm; Wt 89.4 kg
[2023-04-19 06:31] VITALS: BP 120/76
--- NOTE | 2023-04-19 06:44 | NUR ---
TO BED 3 FROM TRIAGE
--- NOTE | 2023-04-19 06:46 | NUR ---
PT TAKEN TO BED 1
[2023-04-19] MEDS ORDERED: KETOROLAC 30 MG/ML VIAL IM ONE (06:50)
[2023-04-19] MEDS ORDERED: CYCLOBENZAPRINE 10 MG TAB PO ONE (06:50)
[2023-04-19] MEDS ORDERED: LIDOCAINE 5% 1 EA PATCH TP ONE (06:50)
[2023-04-19] MEDS ORDERED: ACETAMINOPHEN EXTRA STRENGTH 500 MG TAB PO ONE (06:50)
[2023-04-19 07:51] LABS: APPEARANCE,URINE CLEAR (CLEAR); BILIRUBIN,URINE NEGATIVE (NEGATIVE); BLOOD, URINE 3+ (NEGATIVE); COLOR,URINE YELLOW (YELLOW); LEUKOCYTE ESTERASE ,URINE NEGATIVE (NEGATIVE); NITRITE, URINE NEGATIVE (NEGATIVE); PH,URINE 6.5 (5.0-9.0); UGLUCOSE NEGATIVE (NEGATIVE)
[2023-04-19 08:07] LABS: RBC,URINE 20-50 /HPF (0-5)
[2023-04-19] MEDS ORDERED: ACET-10509 PO (08:29)
[2023-04-19] MEDS ORDERED: IBUP-2213 PO (08:29)
[2023-04-19] MEDS ORDERED: LID5T TP (08:29)
[2023-04-19] MEDS ORDERED: CYCL-711 PO (08:29)
--- NOTE | 2023-04-19 08:47 | NUR ---
Patient discharged with v/s stable. Written and verbal after care instructions given and explained. Patient alert, oriented and verbalized understanding of instructions. Ambulatory with steady gait. All questions addressed prior to discharge. ID band removed. Patient advised to follow up with PMD. Rx of tylenol,flexeril,ibuprofen,lidocaine patch given. Patient educated on indication of medication including possible reaction and side effects. Opportunity to ask questions provided and answered.
== END 2023-04-19 08:47 | disposition home or self-care (01) ==
LOC: MED 06:05
DX: M54.9 Dorsalgia, unspecified (principal); F41.9 Anxiety disorder, unspecified; J45.909 Unspecified asthma, uncomplicated; Z88.1 Allergy status to other antibiotic agents; Z79.899 Other long term (current) drug therapy
CPT/HCPCS: 81001; 81025; 96372; 99284; J1885

== ENCOUNTER 2023-05-05 23:24 | Emergency (ER) | payer OTHER ==
[~2023-05-05] VITALS: Ht 154.9 cm; Wt 89.4 kg
[~2023-05-05 23:24] MED LIST changes: +ACET-10509 PO; +CYCL-711 PO; +LID5T TP
[2023-05-05 23:39] VITALS: BP 123/78; PULSE 85; RESP 20; TEMP 98; O2SAT 90
--- NOTE | 2023-05-06 00:35 | NUR ---
33YO F BIB SELF C/O CHEST PAIN 8/10 NON-RADIATING BEGINNING THIS AM. PT STATES CP LOCAL TO CENTER OF CHEST. PT DENIES SOB. PT ON BEDSIDE MONITOR VSS AND ECG SHOWS SINUS RHYTHM. PIPERACILLIN, TAZOBACTAM ALLERGY HYPERLIPIDEMIA
[2023-05-06] MEDS ORDERED: ONDANSETRON 4 MG ODT PO ONE (00:40)
[2023-05-06] MEDS ORDERED: DICYCLOMINE HCL LIQUID 20 MG, ALUMINUM HYD/MAG/SIMETHICONE 30 ML, LIDOCAINE VISCOUS 2% ... PO ONE ×3 (00:40)
[2023-05-06] MEDS ORDERED: DICYCLOMINE HCL LIQUID 10 MG/5 ML UDC ONE (01:08)
[2023-05-06] MEDS ORDERED: ALUMINUM HYD/MAG/SIMETHICONE 30 ML UDC ONE (01:08)
--- NOTE | 2023-05-06 01:48 | NUR ---
PT RESTING IN BED ON BEDSIDE MONITOR. VSS. PT STATES PAIN 8/10 NON RADIATING CP.
[2023-05-06] MEDS ORDERED: FAMOTIDINE 20 MG TAB PO ONE (02:35)
[2023-05-06] MEDS ORDERED: KETOROLAC 30 MG/ML VIAL IM ONE (02:35)
[2023-05-06] MEDS ORDERED: ONDA-188 SL (03:26)
[2023-05-06] MEDS ORDERED: ALUM355S59 PO (03:26)
[2023-05-06] MEDS ORDERED: OMEP20EC11 PO (03:26)
[2023-05-06 04:09] VITALS: BP 108/66; PULSE 94; RESP 20; O2SAT 97
== END 2023-05-06 03:55 | disposition home or self-care (01) ==
LOC: MED 23:24
DX: K29.70 Gastritis, unspecified, without bleeding (principal); R07.89 Other chest pain; R11.2 Nausea with vomiting, unspecified; J45.909 Unspecified asthma, uncomplicated; I10 Essential (primary) hypertension; N18.9 Chronic kidney disease, unspecified; Z88.8 Allergy status to other drugs, medicaments and biological substances; Z79.899 Other long term (current) drug therapy
CPT/HCPCS: 71045; 81025; 93005; 96372; 99284; J1885; Q0092; Q0162

== ENCOUNTER 2024-06-25 18:53 | Emergency (ER) | payer OTHER ==
[~2024-06-25] VITALS: Ht 154.9 cm; Wt 67.1 kg
[~2024-06-25 18:53] MED LIST changes: +ALUM355S59 PO; +OMEP20EC11 PO; +ONDA-188 SL
[2024-06-25 19:11] VITALS: BP 128/75; PULSE 73; RESP 16; TEMP 97.6; O2SAT 97
[2024-06-25 20:23] LABS: BASOPHILS % (AUTO) 0.5 % (0.0-2.0); EOSINOPHILS # (AUTO) 0.1 K/uL (0-0.4); EOSINOPHILS % (AUTO) 1.4 % (0.0-4.0); HEMATOCRIT 38.1 % (36-48); HEMOGLOBIN 12.4 g/dL (12.0-16.0); MEAN CORPUSCULAR HEMOGLOBIN 27 pg (27-31); MEAN CORPUSCULAR HGB CONC 33 g/dL (33-37); MEAN CORPUSCULAR VOLUME 81.4 fL (80-94); MONOCYTES # (AUTO) 0.5 K/uL (0.8-1.0); NEUTROPHILS # (AUTO) 4.9 K/uL (1.8-7.7); NEUTROPHILS % (AUTO) 57.1 % (42.2-75.2); PLATELET COUNT (AUTO) 244 K/uL (140-450); RED BLOOD CELL COUNT(AUTO) 4.68 MIL/uL (4.20-5.40); RED CELL DISTRIBUTION WIDTH 13.9 % (11.6-13.7); WHITE BLOOD COUNT (AUTO) 8.6 K/uL (4.8-10.8)
[2024-06-25 20:31] LABS: APPEARANCE,URINE CLEAR (CLEAR); BILIRUBIN,URINE NEGATIVE (NEGATIVE); BLOOD, URINE NEGATIVE (NEGATIVE); COLOR,URINE YELLOW (YELLOW); LEUKOCYTE ESTERASE ,URINE NEGATIVE (NEGATIVE); NITRITE, URINE NEGATIVE (NEGATIVE); PROTEIN,URINE NEGATIVE (NEGATIVE); UGLUCOSE NEGATIVE (NEGATIVE); UROBILINOGEN,URINE 0.2 EU/dL (0.2 - 1)
[2024-06-25 20:47] LABS: ALBUMIN 3.8 g/dL (3.4-5.0); ANION GAP 12.3 (8-16); CALCIUM 9.3 mg/dL (8.5-10.1); CARBON DIOXIDE 28.4 mmol/L (21-32); CREATININE 0.7 mg/dL (0.6-1.3); POTASSIUM 3.7 mmol/L (3.5-5.1); TOTAL BILIRUBIN 0.7 mg/dL (0.0-1.0); TOTAL PROTEIN, SERUM 7.5 g/dL (6.4-8.2)
[2024-06-25] MEDS: ONDANSETRON 4 MG/2 ML VIAL IVP ONE (20:48)
[2024-06-25] MEDS: NACL 0.9% 1,000 ML IV ONE (20:49)
[2024-06-25] MEDS: MORPHINE SULFATE 4 MG/ML SYR IVP ONE (20:49)
[2024-06-25] MEDS ORDERED: DICYCLOMINE HCL LIQUID 10 MG/5 ML UDC ONE (21:34)
[2024-06-25] MEDS ORDERED: ALUMINUM HYD/MAG/SIMETHICONE 30 ML UDC ONE (21:34)
[2024-06-25] MEDS: DICYCLOMINE HCL LIQUID 20 MG, ALUMINUM HYD/MAG/SIMETHICONE 30 ML, LIDOCAINE VISCOUS 2% ... PO ONE (21:36)
[2024-06-25] MEDS ORDERED: HYDROcodone/APAP 5/325 MG 1 TAB TAB ONE (22:08)
[2024-06-25] MEDS: HYDROcodone/APAP 5/325 MG 1 TAB TAB PO ONE (22:12)
[2024-06-25 22:16] VITALS: BP 122/75; PULSE 74; RESP 17; TEMP 98
[2024-06-25 22:17] VITALS: O2SAT 97
== END 2024-06-25 22:16 | disposition home or self-care (01) ==
LOC: MED 18:53
DX: R10.33 Periumbilical pain (principal); R11.2 Nausea with vomiting, unspecified; R14.0 Abdominal distension (gaseous); E11.9 Type 2 diabetes mellitus without complications; F41.9 Anxiety disorder, unspecified; Z87.448 Personal history of other diseases of urinary system; Z90.49 Acquired absence of other specified parts of digestive tract; Z98.890 Other specified postprocedural states; Z79.899 Other long term (current) drug therapy; Z88.0 Allergy status to penicillin; Z88.1 Allergy status to other antibiotic agents
CPT/HCPCS: 36415; 80053; 81003; 81025; 83690; 85025; 96361; 96374; 96375; 99284; J2270; J2405; J7030

== ENCOUNTER 2024-07-27 16:18 | Emergency (ER) | payer OTHER ==
[~2024-07-27] VITALS: Ht 154.9 cm; Wt 64.4 kg
[~2024-07-27 16:18] MED LIST changes: -ACET-10509 PO; +ACET500T99 PO
[2024-07-27 16:33] VITALS: BP 118/75; PULSE 97; RESP 16; TEMP 97.8; O2SAT 95
[2024-07-27 17:36] VITALS: PULSE 89; RESP 16; O2SAT 97
[2024-07-27] MEDS: ALBUTEROL SULFATE/IPRATROPIU 3 ML SOL IH ONE (17:36)
[2024-07-27] MEDS ORDERED: ACETAMIN/CODEINE 120/12MG-5ML 5 ML UDC PO ONE (18:05)
[2024-07-27] MEDS ORDERED: CODE-107 PO (18:10)
[2024-07-27] MEDS ORDERED: PRED20TA5 PO (18:10)
[2024-07-27] MEDS: ACETAMIN/CODEINE 120/12MG-5ML 5 ML UDC PO ONE (18:16)
[2024-07-27 18:39] LABS: FLU A ANTIGEN NEGATIVE (NEGATIVE); FLU B ANTIGEN NEGATIVE (NEGATIVE)
== END 2024-07-27 18:36 | disposition home or self-care (01) ==
LOC: MED 16:18
DX: J45.909 Unspecified asthma, uncomplicated (principal); Z20.822 Contact with and (suspected) exposure to COVID-19; I10 Essential (primary) hypertension; E11.9 Type 2 diabetes mellitus without complications; Z79.899 Other long term (current) drug therapy; Z87.448 Personal history of other diseases of urinary system; Z88.0 Allergy status to penicillin; Z88.1 Allergy status to other antibiotic agents
CPT/HCPCS: 71045; 94640; 99284